=== PATIENT | female | born 1970 | race Caucasian/White ===

== ENCOUNTER 2017-09-26 23:39 | Emergency (ER) | payer BC ==
[~2017-09-26] VITALS: Ht 160 cm; Wt 83.9 kg
[2017-09-26 23:46] VITALS: BP 119/69
[2017-09-27] MEDS ORDERED: ANAPROX DS550 MG PO (00:47)
[2017-09-27] MEDS ORDERED: Motrin,Rufen800 MG PO (00:51)
== END 2017-09-27 01:29 | disposition home or self-care (01) ==
LOC: ED 23:39
DX: S93.692A Other sprain of left foot, initial encounter (principal); Z90.89 Acquired absence of other organs; W19.XXXA Unspecified fall, initial encounter; Y93.89 Activity, other specified; Y92.009 Unspecified place in unspecified non-institutional (private) residence as the place of occurrence of the external cause; Y99.9 Unspecified external cause status

== ENCOUNTER → 2017-12-21 | Outpatient (CLI) | payer BC ==
[~2017-12-21] MED LIST: ANAPROX DS550 MG PO; Motrin,Rufen800 MG PO
== END | disposition home or self-care (01) ==
LOC: RAD 10:16
DX: M54.5 Low back pain (principal); R53.1 Weakness; Z91.81 History of falling